=== PATIENT | male | born 1975 | race African-American/Black ===

== ENCOUNTER 2017-07-06 05:20 | Emergency (ER) | payer OTHER | END 2017-07-06 06:55 | disposition home or self-care (01) | LOC: D.ER 05:20 | DX: I10 Essential (primary) hypertension (principal); F17.200 Nicotine dependence, unspecified, uncomplicated ==

== ENCOUNTER 2018-01-02 22:50 | Emergency (ER) | payer OTHER ==
[2018-01-02 23:02] LABS: BASOPHILS 0.3 % (0-2); EOSINOPHILS 2.8 % (0-7); HEMATOCRIT 42.4 % (42.0-54.0); HEMOGLOBIN 14.1 g/dL (13.5-17.5); IMMATURE GRANULOCYTES 0.1 % (0-5); LYMPHOCYTES 46.5 % (15-50); MCHC 33.3 g/dL (31.0-37.0); MCV 87.2 fL (80.0-100.0); MEAN PLATELET VOLUME 11.3 fL (7.4-10.4); NEUTROPHILS 42.3 % (40-80); PLATELET COUNT 181 10x3/uL (130-400); RBC 4.86 10x6/uL (4.20-6.10); RDW 12.9 % (11.5-14.5); WBC 7.9 10x3/uL (4.8-10.8)
[2018-01-02 23:12] LABS: INR 0.97 (0.85-1.17); PROTIME 12.5 SECONDS (11.6-15.0)
[2018-01-02 23:17] LABS: ALBUMIN 3.6 g/dL (3.4-5.0); ALKALINE PHOSPHATASE 79 U/L (46-116); ALT (SGPT) 18 U/L (10-68); CALC OSMOLALITY 289 mosm/kg (275-300); CALCIUM 8.4 mg/dL (8.5-10.1); CARBON DIOXIDE 20.8 mmol/L (21.0-32.0); CHLORIDE - SERUM 107 mmol/L (98-107); CREATININE - SERUM 1.2 mg/dL (0.6-1.3); GLUCOSE 206 mg/dL (74-106); POTASSIUM - SERUM 3.8 mmol/L (3.5-5.1); SODIUM 142 mmol/L (136-145); UREA NITROGEN 14 mg/dL (7-18); eGFR NON AFRICAN AMERICAN 71 mL/min (90-120)
[2018-01-02 23:38] LABS: CREATINE KINASE 242 UL (21-232); LIPASE 289 U/L (73-393); MAGNESIUM - SERUM 1.7 mg/dL (1.8-2.4); PRO BNP 67 pg/mL (0-125); TROPONIN-I < 0.017 ng/mL (0.000-0.060)
[2018-01-02 23:43] LABS: CKMB 0.8 U/L (0.0-3.6)
[2018-01-18 16:17] VITALS: BMI 30.4
== END 2018-01-02 23:28 | disposition left against medical advice (07) ==
LOC: D.ER 22:50
PROVIDERS: Family Medicine; Nurse Practitioner Family
DX: G40.89 Other seizures (principal)

== ENCOUNTER 2018-01-03 12:14 | Emergency (ER) | payer OTHER ==
[2018-01-03 12:50] LABS: BASOPHILS 0.1 % (0-2); EOSINOPHILS 2.4 % (0-7); HEMATOCRIT 43.2 % (42.0-54.0); HEMOGLOBIN 14.1 g/dL (13.5-17.5); IMMATURE GRANULOCYTES 0.1 % (0-5); LYMPHOCYTES 32.6 % (15-50); MCH 28.5 pg (26.0-34.0); MCHC 32.6 g/dL (31.0-37.0); MCV 87.3 fL (80.0-100.0); MEAN PLATELET VOLUME 11.4 fL (7.4-10.4); NEUTROPHILS 55.8 % (40-80); PLATELET COUNT 189 10x3/uL (130-400); RBC 4.95 10x6/uL (4.20-6.10); RDW 12.8 % (11.5-14.5); WBC 8.5 10x3/uL (4.8-10.8)
[2018-01-03 13:11] LABS: ALBUMIN 3.8 g/dL (3.4-5.0); ALKALINE PHOSPHATASE 92 U/L (46-116); ALT (SGPT) 17 U/L (10-68); BILIRUBIN - TOTAL 1.08 mg/dL (0.2-1.3); CALCIUM 8.5 mg/dL (8.5-10.1); CARBON DIOXIDE 25.4 mmol/L (21.0-32.0); CHLORIDE - SERUM 107 mmol/L (98-107); POTASSIUM - SERUM 3.8 mmol/L (3.5-5.1); PROTEIN - SERUM 7.3 g/dL (6.4-8.2); SODIUM 142 mmol/L (136-145); eGFR NON AFRICAN AMERICAN 87 mL/min (90-120)
[2018-01-03 13:12] LABS: CALC OSMOLALITY 284 mosm/kg (275-300); GLUCOSE 149 mg/dL (74-106); UREA NITROGEN 10 mg/dL (7-18)
[2018-01-03 14:58] LABS: UDS - AMPHET NEGATIVE QUAL (NEGATIVE); UDS - BARB NEGATIVE QUAL (NEGATIVE); UDS - BENZO POSITIVE QUAL (NEGATIVE); UDS - COCAINE NEGATIVE QUAL (NEGATIVE); UDS - OPIATE NEGATIVE QUAL (NEGATIVE); UDS - PCP NEGATIVE QUAL (NEGATIVE); UDS - THC POSITIVE QUAL (NEGATIVE)
[2018-01-03 15:19] LABS: APPEARANCE CLEAR (CLEAR); BILIRUBIN NEGATIVE (NEGATIVE); COLOR YELLOW (YELLOW); GLUCOSE NEGATIVE (NEGATIVE); KETONE NEGATIVE (NEGATIVE); NITRITE NEGATIVE (NEGATIVE); PROTEIN NEGATIVE (NEGATIVE); UROBILINOGEN NORMAL (NORMAL)
[2018-01-03 15:20] LABS: BACTERIA FEW /hpf (NONE SEEN); EPITHELIAL CELLS 0-5 /hpf (0-5); RED CELLS - URINE 0-5 /hpf (0-5)
[2018-01-18 16:17] VITALS: BMI 30.4
== END 2018-01-03 18:33 | disposition home or self-care (01) ==
LOC: D.ER 12:14
PROVIDERS: Family Medicine
DX: G40.909 Epilepsy, unspecified, not intractable, without status epilepticus (principal); I62.9 Nontraumatic intracranial hemorrhage, unspecified; I10 Essential (primary) hypertension; F17.200 Nicotine dependence, unspecified, uncomplicated

== ENCOUNTER 2018-01-17 11:00 | Inpatient (IN) | payer OTHER ==
[~2018-01-17] VITALS: Ht 185.4 cm; Wt 102.5 kg
--- NOTE | ~2018-01-17 | OP ---
PATIENT NAME: VERNON LOCKHART MEDICAL RECORD: [id number] [id number] ADMISSION DATE:01/18/18 SURGEON: CAMI VALDEZ MD DATE OF OPERATION: 01/18/2018 PREOPERATIVE DIAGNOSIS: Left occipital cavernous angioma. POSTOPERATIVE DIAGNOSIS: Left occipital cavernous angioma. PROCEDURE: Craniotomy for resection of left occipital cavernous angioma with stereotactic Townley navigation with craniotomy scalp flap planning and craniotomy planning and intraoperative monitoring of resection, and intraoperative ultrasound guidance for resection of a cavernoma. SURGEON: Cami Valdez MD DESCRIPTION AND TECHNIQUE: After induction of general endotracheal anesthesia, the patient was placed in Jacobson head pins and registration took place with fiducial markers and Dtime navigation system using MRI data set. Next, the scalp flap and skull flap were planned using Dtime navigation. Following this, 1:100,000 epinephrine and 1% lidocaine was infiltrated into the scalp. A longitudinal incision was carried out in this area. Boston clips were applied to scalp for hemostasis. Two haylie holes were created at the edges with a Midas-Bob drill. The haylie holes were connected with a Midas Bob using the side cutting haylie and bit plate attachment. Skull flap was elevated without difficulty from the dura. Good position of the skull flap was confirmed with ultrasound and Dtime navigation. The dura was opened in cruciate manner with a #11 blade and a microscope. Using ultrasound shortest distance to the cavernoma was taken through the sulcus at the inferior portion of the flap opening. With arachnoid dissection, the bone sulcus was entered and there was obvious hemosiderin infiltrated arthur matter and white matter in this area. This was removed with gentle suction and sent off for pathology. Next, severe clotted medium size thin smooth-walled vessels were encountered. These were removed as well with dissecting with microdissection around the perimeter of the entire hemosiderin coated mass. This was sent to pathology for diagnosis. The resection took place until white matter was encountered, which was not infiltrated with hemosiderin. Meticulous hemostasis was maintained throughout the wound. There is no further cavernoma mass on ultrasound. Next, the dura was closed with interrupted 4-0 Nurolon suture. The skull flap was replaced with titanium plates and screws. The galea was reapproximated with 2-0 Vicryl suture. The skin was closed with emily. A sterile dressing was applied to the wound. The patient was awakened in good condition and taken to recovery. All counts were reported as correct. Estimated blood loss was minimal. TRANSINT:[id number] Voice Confirmation ID: [id number] DOCUMENT ID: [id number] CAMI VALDEZ MD CC: [id number] DICTATION DATE: 01/18/18 1503 CREAM TESTER: 01/18/18 1541 ADM IN [id number] [place] [address]
[2018-01-17] MEDS ORDERED: DILANTIN100 MG PO (11:31)
[2018-01-17] MEDS ORDERED: NORVASC5 MG PO (11:32)
[2018-01-18] VITALS (10 sets, daily range): BP systolic 150–163; BP diastolic 80–99; Ht 185.4 cm; Wt 102.5 kg
[2018-01-18 10:06] LABS: HEMATOCRIT 43.3 % (42.0-54.0); HEMOGLOBIN 14.3 g/dL (13.5-17.5); MCH 28.8 pg (26.0-34.0); MCV 87.1 fL (80.0-100.0); MEAN PLATELET VOLUME 12.5 fL (7.4-10.4); RBC 4.97 10x6/uL (4.20-6.10); RDW 12.8 % (11.5-14.5); WBC 6.9 10x3/uL (4.8-10.8)
[2018-01-19] VITALS (25 sets, daily range): BP systolic 129–189; BP diastolic 57–123
[2018-01-20] VITALS (9 sets, daily range): BP systolic 123–160; BP diastolic 58–85
== END 2018-01-20 12:10 | disposition home or self-care (01) | DRG 27 ==
LOC: D.SDCHOLD 16:30 → D.ICU 01-18 07:40 → D.SDCHOLD 01-18 10:10 → D.ICU 01-18 15:21 → D.SDCHOLD 01-18 16:30 → D.ICU 01-20 12:10
PROVIDERS: Anesthesiology; Neurological Surgery
PROC: 00B70ZZ Excision of Cerebral Hemisphere, Open Approach (ICD-10-PCS; principal; 2018-01-18 10:15)
DX: D18.02 Hemangioma of intracranial structures (principal); R56.9 Unspecified convulsions; I10 Essential (primary) hypertension; F17.200 Nicotine dependence, unspecified, uncomplicated

== ENCOUNTER → 2018-04-15 15:18 | Outpatient (CLI) | payer OTHER ==
[2018-01-18 16:17] VITALS: BMI 30.4
[~2018-04-15 15:18] MED LIST: DILANTIN100 MG PO; NORVASC5 MG PO
== END | disposition home or self-care (01) ==
LOC: D.MRI 15:00
DX: D18.00 Hemangioma unspecified site (principal)

== ENCOUNTER 2018-11-20 21:44 | Emergency (ER) | payer OTHER ==
[~2018-11-20] VITALS: Ht 185.4 cm; Wt 100.0 kg
[2018-11-20 21:46] VITALS: Ht 185.4 cm; Wt 100.0 kg
[2018-11-20 22:14] LABS: BASOPHILS 0.3 % (0-2); EOSINOPHILS 3.2 % (0-7); HEMATOCRIT 46.2 % (42.0-54.0); HEMOGLOBIN 15.2 g/dL (13.5-17.5); IMMATURE GRANULOCYTES 0.2 % (0-5); LYMPHOCYTES 42.5 % (15-50); MCHC 32.9 g/dL (31.0-37.0); MEAN PLATELET VOLUME 11.4 fL (7.4-10.4); MONOCYTES 7.4 % (2-11); NEUTROPHILS 46.4 % (40-80); PLATELET COUNT 187 10x3/uL (130-400); RBC 5.25 10x6/uL (4.20-6.10); RDW 13.1 % (11.5-14.5)
[2018-11-20 22:28] LABS: ALBUMIN 3.6 g/dL (3.4-5.0); ANION GAP 20.4 mmol/L (8-16); BILIRUBIN - TOTAL 0.57 mg/dL (0.2-1.3); CALCIUM 8.5 mg/dL (8.5-10.1); CARBON DIOXIDE 21.8 mmol/L (21.0-32.0); CREATININE - SERUM 1.3 mg/dL (0.6-1.3); PHENYTOIN (DILANTIN) 0.7 ug/mL (10.0-20.0); POTASSIUM - SERUM 4.2 mmol/L (3.5-5.1); PROTEIN - SERUM 7.5 g/dL (6.4-8.2)
[2018-11-20] MEDS ORDERED: DILANTIN100 MG PO (22:58)
[2018-11-20 23:07] VITALS: BP 154/79
== END 2018-11-20 23:07 | disposition home or self-care (01) ==
LOC: D.ER 21:44
PROVIDERS: Emergency Medicine
DX: G40.909 Epilepsy, unspecified, not intractable, without status epilepticus (principal)

== ENCOUNTER 2019-06-16 15:23 | Emergency (ER) | payer OTHER ==
[~2019-06-16] VITALS: Ht 185.4 cm; Wt 109.1 kg
[2019-06-16 15:46] VITALS: Ht 185.4 cm; Wt 109.1 kg
[2019-06-16] MEDS ORDERED: VOLTAREN75 MG PO (17:17)
[2019-06-16] MEDS ORDERED: OMEPRAZOLE20 M1 PO (17:17)
[2019-06-16 17:50] VITALS: BP 156/111
== END 2019-06-16 17:53 | disposition home or self-care (01) ==
LOC: D.ER 15:23
DX: R07.81 Pleurodynia (principal)

== ENCOUNTER 2020-04-28 15:34 | Emergency (ER) | payer SELFPAY ==
[~2020-04-28] VITALS: Ht 185.4 cm; Wt 95.5 kg
[~2020-04-28 15:34] MED LIST changes: +OMEPRAZOLE20 M1 PO; +VOLTAREN75 MG PO
[2020-04-28 15:50] VITALS: BP 128/94; Ht 185.4 cm; Wt 95.5 kg
[2020-04-28] MEDS ORDERED: AZITHROMYCIN500 MG (15:51)
[2020-04-28] MEDS ORDERED: PREDNISONE1 MG (15:51)
== END 2020-04-28 16:30 | disposition home or self-care (01) ==
LOC: D.ER 15:34
DX: U07.1 COVID-19 (principal)

== ENCOUNTER 2021-02-26 08:25 | Emergency (ER) | payer BC, OTHER ==
[~2021-02-26] VITALS: Ht 185.4 cm; Wt 102.3 kg
[~2021-02-26 08:25] MED LIST changes: +AZITHROMYCIN500 MG; +MEDROL DOSE PACK4 MG PO; +PREDNISONE1 MG
[2021-02-26 08:30] VITALS: BP 175/105; Ht 185.4 cm; Wt 102.3 kg
[2021-02-26 09:01] LABS: BASOPHILS 0.8 % (0-2); EOSINOPHILS 1.9 % (0-7); HEMATOCRIT 41.7 % (42.0-54.0); HEMOGLOBIN 13.7 g/dL (13.5-17.5); LYMPHOCYTES 36.6 % (15-50); MCH 28.6 pg (26.0-34.0); MCHC 32.8 g/dL (31.0-37.0); MCV 87.4 fL (80.0-100.0); MEAN PLATELET VOLUME 9.1 fL (7.4-10.4); MONOCYTES 8.3 % (2-11); NEUTROPHILS 52.4 % (40-80); PLATELET COUNT 184 10x3/uL (130-400); RBC 4.77 10x6/uL (4.20-6.10); RDW 12.5 % (11.5-14.5); WBC 6.7 10x3/uL (4.8-10.8)
[2021-02-26 09:11] LABS: CALC OSMOLALITY 290 mosm/kg (275-300); CALCIUM 8.5 mg/dL (8.5-10.1); CARBON DIOXIDE 25.4 mmol/L (21.0-32.0); CHLORIDE - SERUM 100 mmol/L (98-107); POTASSIUM - SERUM 3.8 mmol/L (3.5-5.1); SODIUM 138 mmol/L (136-145); UREA NITROGEN 15 mg/dL (7-18); eGFR NON AFRICAN AMERICAN 86 mL/min (90-120)
[2021-02-26 09:12] LABS: GLUCOSE 355 mg/dL (74-106)
[2021-02-26 09:17] LABS: ALBUMIN 4.1 g/dL (3.4-5.0); ALKALINE PHOSPHATASE 85 U/L (30-120); ALT (SGPT) 11 U/L (10-68); BILIRUBIN - TOTAL 0.45 mg/dL (0.2-1.3); PROTEIN - SERUM 7.1 g/dL (6.4-8.2)
[2021-02-26 09:38] LABS: LIPASE 200 U/L (73-393); TROPONIN-I < 0.017 ng/mL (0.000-0.060)
[2021-02-26 09:43] LABS: APTT 26.6 SECONDS (22.8-39.4); INR 1.17 (0.85-1.17); PROTIME 13.8 SECONDS (11.6-15.0)
[2021-02-26 09:54] LABS: AMYLASE - SERUM 79 U/L (25-115)
[2021-02-26 09:59] LABS: BILIRUBIN NEGATIVE (NEGATIVE); KETONE NEGATIVE (NEGATIVE); NITRITE NEGATIVE (NEGATIVE); UROBILINOGEN NORMAL mg/dL (< 2)
[2021-02-26] MEDS ORDERED: ACETAMINOPHEN500 M1 PO (10:22)
[2021-02-26] MEDS ORDERED: GLUCOPHAGE1000 MG PO (10:22)
[2021-02-26] MEDS ORDERED: CYCLOBENZAPRINE10 MG PO (10:22)
[2021-02-26] MEDS ORDERED: IBUPROFEN800 MG PO (10:22)
[2021-02-26] MEDS ORDERED: VIBRAMYCIN 100100 MG PO (10:27)
== END 2021-02-26 11:17 | disposition home or self-care (01) ==
LOC: D.ER 08:25
PROVIDERS: Family Medicine
DX: N50.812 Left testicular pain (principal); N50.811 Right testicular pain; N45.2 Orchitis; R73.9 Hyperglycemia, unspecified; I10 Essential (primary) hypertension; Z72.0 Tobacco use